=== PATIENT | female | born 1965 | race Hispanic/Latino ===

== ENCOUNTER → 2024-05-06 | Day surgery (SDC) | payer OTHER ==
[~2024-05-06] MED LIST: HYOSCYAMINE SULFATE 0.5 MG/ML INJ ONE; LABETALOL HCL 5 MG/ML 20ML VIAL ONE; LISINOPRIL-HCT1 EAC2 PO; PROPOFOL IV EMULSION 10 MG/ML 20 ML VIAL ONE; PROPOFOL IV EMULSION 10 MG/ML 50 ML VIAL IV ONE; SIMETHICONE 40 MG/0.6 ML BTL ONE; ZESTRIL10 MG PO
[2024-05-06] MEDS: LACTATED RINGER'S 1,000 ML ONE (11:30)
[2024-05-06 13:14] VITALS: TEMP 97
[2024-05-06 14:15] VITALS: BP 98/60; PULSE 90; RESP 16; O2SAT 98
== END | disposition home or self-care (01) ==
LOC: OR 11:14
PROVIDERS: ATTEND Internal Medicine Gastroenterology
DX: R19.5 Other fecal abnormalities (principal); K63.5 Polyp of colon; K64.8 Other hemorrhoids; Z71.3 Dietary counseling and surveillance; I10 Essential (primary) hypertension; Z71.89 Other specified counseling; E66.01 Morbid (severe) obesity due to excess calories; Z01.810 Encounter for preprocedural cardiovascular examination; Z79.899 Other long term (current) drug therapy; Z68.34 Body mass index [BMI] 34.0-34.9, adult
CPT/HCPCS: 45378; 45384; 93005; J1980